=== PATIENT | female | born 1990 | race Caucasian/White ===

== ENCOUNTER → 2017-04-24 | Outpatient (CLI) | payer MEDICAID ==
[2017-04-24 16:25] LABS: Basophils # (auto) 0.1 uL; Eosinophils # (auto) 0.2 uL; Eosinophils % (auto) 1.5 % (0.0-7.0); Hematocrit 38.2 % (36.0-46.0); Hemoglobin 12.6 g/dL (12.2-16.2); Lymphocytes # (auto) 2.2 uL; Lymphocytes % (auto) 17.8 % (10.0-50.0); Mean Corpuscular Hemoglobin 26.7 pg (28.0-32.0); Mean Corpuscular Volume 80.9 fL (80.0-100.0); Monocytes # (auto) 0.6 uL; Monocytes % (auto) 4.7 % (0.0-12.0); Neutrophils # (auto) 9.2 uL; Platelet Count (auto) 255 10^3/uL (140-450); Red Cell Distribution Width 15.8 % (11.8-14.3); White Blood Cell 12.3 10^3/uL (4.4-10.8)
== END | disposition home or self-care (01) ==
LOC: LAB 15:34
PROVIDERS: ATTEND Obstetrics & Gynecology
DX: Z34.80 Encounter for supervision of other normal pregnancy, unspecified trimester (principal); Z3A.00 Weeks of gestation of pregnancy not specified
CPT/HCPCS: 36415; 81220; 83036; 84144; 84702; 85025; 86592; 86703; 86850; 86900; 86901; 87340

== ENCOUNTER → 2017-05-26 | Outpatient (CLI) | payer MEDICAID | END | disposition home or self-care (01) | LOC: LAB 08:55 | PROVIDERS: ATTEND Obstetrics & Gynecology | DX: Z34.80 Encounter for supervision of other normal pregnancy, unspecified trimester (principal) | CPT/HCPCS: 80307; 86762; 87086 ==

== ENCOUNTER 2017-09-19 10:00 | Observation (INO) | payer MEDICAID ==
[~2017-09-19] VITALS: Ht 162.6 cm; Wt 101.2 kg
[2017-09-19] MEDS ORDERED: LACTATED RINGER'S 1,000 ML IV ONE (10:45)
[2017-09-19] MEDS ORDERED: PROMETHAZINE HCL 25 MG/ML 1ML IV ONE (10:45)
[2017-09-19 11:25] LABS: Urine Bacteria FEW /hpf (None Seen); Urine Blood Negative /uL (Negative); Urine Mucus FEW (None Seen); Urine Specific Gravity 1.024 (1.001-1.035); Urine WBC 32 /hpf (0 - 5)
[2017-09-19 11:27] LABS: Albumin 2.4 g/dL (3.4-5.0); Calcium 8.5 mg/dL (8.5-10.1); Potassium 3.8 mmol/L (3.5-5.1)
[2017-09-19 11:29] LABS: BUN/Creatinine Ratio 18.6; Basophils # (auto) 0 uL; Eosinophils # (auto) 0 uL; Hemoglobin 10.9 g/dL (12.2-16.2); Lymphocytes # (auto) 1.7 uL; Monocytes # (auto) 0.5 uL; Nucleated Red Blood Cells % 0.1 %; Uric Acid 4.7 mg/dL (2.6-6.0)
[2017-09-19 11:31] LABS: Basophils % (auto) 0.4 % (0.0-2.0); Bilirubin, Total 0.3 mg/dL (0.2-1.0); Eosinophils % (auto) 0.4 % (0.0-7.0); Lymphocytes % (auto) 15.2 % (10.0-50.0); Mean Corpuscular Hemoglobin 24.6 pg (28.0-32.0); Mean Corpuscular Hgb Conc. 32.1 g/dL (32.0-36.0); Mean Corpuscular Volume 76.7 fL (80.0-100.0); Monocytes % (auto) 4.5 % (0.0-12.0); Neutrophils % (auto) 79.5 % (37.0-80.0); Platelet Count (auto) 246 10^3/uL (140-450); Red Blood Cells 4.43 10^6/uL (4.0-5.20); Red Cell Distribution Width 15.3 % (11.8-14.3); Total Protein 6.9 g/dL (6.4-8.2); White Blood Cell 11.4 10^3/uL (4.4-10.8)
[2017-09-19 11:47] LABS: Phencyclidine Screen, Urine NEGATIVE (NEGATIVE)
[2017-09-19 11:51] LABS: Alcohol, Urine < 3.0 mg/dL (0-5); Amphetamine Screen, Urine NEGATIVE (NEGATIVE); Barbiturate Scree,Urine NEGATIVE (NEGATIVE); Benzodiazephine Screen, Urine NEGATIVE (NEGATIVE); Cannabinoid Screen, Urine NEGATIVE (NEGATIVE); Cocaine Screen, Urine NEGATIVE (NEGATIVE); Opiate Scree,Urine NEGATIVE (NEGATIVE)
[2017-09-19 12:58] LABS: INR 0.86 (0.9-1.15); Partial Thromboplastin Time 26.1 sec (22.64-33.71); Prothrombin Time 9.4 sec (9.37-12.3)
[2017-09-20 04:10] LABS: RPR Non Reactive (Non Reactive)
== END 2017-09-19 13:00 | disposition short-term general hospital (02) | DRG 566 ==
LOC: LDRP 10:00
PROVIDERS: ADMIT Obstetrics & Gynecology; ATTEND Obstetrics & Gynecology
DX: O14.23 HELLP syndrome (HELLP), third trimester (principal); O26.893 Other specified pregnancy related conditions, third trimester; R51 Headache; R42 Dizziness and giddiness; O21.2 Late vomiting of pregnancy; R10.13 Epigastric pain; Z3A.36 36 weeks gestation of pregnancy
CPT/HCPCS: 36415; 59025; 76818; 80053; 80307; 81001; 81002; 84550; 85025; 85610; 85730; 86592; G0378; 96365; 96366